=== PATIENT | male | born 1975 | race Caucasian/White ===

== ENCOUNTER 2020-03-09 12:11 | Emergency (ER) | payer SELFPAY ==
[~2020-03-09] VITALS: Ht 180.3 cm; Wt 68.2 kg
[2020-03-09 12:11] VITALS: BP 122/89; Ht 180.3 cm; Wt 68.2 kg
[2020-03-09] MEDS ORDERED: BACTRIM DS TAB1 EAC1 PO (12:37)
[2020-03-09] MEDS ORDERED: KENALOG 0.1 % 115 GM TOPICAL (12:37)
== END 2020-03-09 12:59 | disposition home or self-care (01) ==
LOC: D.ER 12:11
DX: T63.331A Toxic effect of venom of brown recluse spider, accidental (unintentional), initial encounter (principal); Y93.9 Activity, unspecified; Y92.9 Unspecified place or not applicable; M79.651 Pain in right thigh; K21.9 Gastro-esophageal reflux disease without esophagitis